=== PATIENT | male | born 1990 | race American Indian/Alaskan Native ===

== ENCOUNTER 2019-12-14 00:45 | Emergency (ER) | payer SELFPAY ==
[2019-12-14] MEDS ORDERED: CLINDAMYCIN 300 MG CAP PO ONE (03:47)
[2019-12-14] MEDS ORDERED: SULFAMETHOXAZOLE/TRIMETHOPRIM 800/160MG DS TAB PO ONE (03:47)
[2019-12-14] MEDS ORDERED: ONDANSETRON 4 MG ODT TAB PO ONE (03:47)
[2019-12-14] MEDS ORDERED: ACETAMINOPHEN 500 MG TAB PO ONE (03:47)
[2019-12-14] MEDS ORDERED: IBUPROFEN 600 MG TAB PO ONE (03:47)
--- NOTE | 2019-12-14 04:45 | Emergency Department Report ---
ED General Adult HPI - General Chief complaint: Skin/Abscess/Foreign Body Stated complaint: BOIL UNDER LT ARMPIT Source: patient Mode of arrival: Ambulatory Limitations: No Limitations - History of Present Illness Initial comments: Patient is a 29-year-old -[place]ym[place] male with no past medical history presents to the ED with complaint of acute onset persistent severe painful swollen erythematous maculopapular rash on left axilla for the last 1 week. Patient states that the pain is worsened in the last 2 days such that he was unable to sleep and decided come to the ED for evaluation. Patient states that he has been taking [id number] pain medications with no relief. Patient denies dizziness, syncope, chest pain, shortness of breath, fever, chills, cough, headache, nausea, vomiting, numbness and tingling or weakness of left arm, traumatic injury or heavy lifting, sore throat, neck pain, nasal and sinus congestion. MD Complaint: left axilla swollen painful rash -: Sudden, week(s) (1) Location: upper extremity (left axilla) Radiation: non-radiation Severity scale (0 -10): 10 Quality: aching, sharp Consistency: constant Improves with: none Worsens with: none Associated Symptoms: denies other symptoms, loss of appetite, rash (Swollen painful erythematous maculopapular rash on left axilla). denies: confusion, chest pain, cough, diaphoresis, headaches, malaise, nausea/vomiting, seizure, shortness of breath, syncope, weakness Treatments Prior to Arrival: none - Related Data Previous Rx's Medication Instructions Recorded Last Taken Type Acetaminophen/Codeine [Tylenol 1 tab PO Q6H PRN #12 tab 12/14/19 Unknown Rx /Codeine # 3 tab] Clindamycin [Clindamycin CAP] 300 mg PO Q8HR #60 capsule 12/14/19 Unknown Rx Ibuprofen [Motrin] 800 mg PO Q8HR PRN #30 tablet 12/14/19 Unknown Rx Sulfamethoxazole/Trimethoprim 1 each PO Q12H #20 tablet 12/14/19 Unknown Rx [Bactrim DS TAB] Allergies Allergy/AdvReac Type Severity Reaction Status Date / Time No Known Allergies Allergy Verified 12/14/19 01:37 ED Review of Systems ROS: Stated complaint: BOIL UNDER LT ARMPIT Other details as noted in HPI Constitutional: denies: chills, fever Eyes: denies: eye pain, eye discharge, vision change ENT: denies: ear pain, throat pain Respiratory: denies: cough, shortness of breath, wheezing Cardiovascular: denies: chest pain, palpitations Endocrine: no symptoms reported Gastrointestinal: denies: abdominal pain, nausea, diarrhea Genitourinary: denies: urgency, dysuria Musculoskeletal: arthralgia (Painful swollen erythematous maculopapular rash on left axilla). denies: back pain, joint swelling Skin: rash (Swollen, painful erythematous maculopapular rash on left axilla). denies: lesions Neurological: denies: headache, weakness, paresthesias Psychiatric: denies: anxiety, depression Hematological/Lymphatic: denies: easy bleeding, easy bruising ED Past Medical Hx - Past Medical History Previous Medical History?: No - Surgical History Past Surgical History?: No - Social History Smoking Status: Current Every Day Smoker Substance Use Type: Alcohol - Medications Home Medications: Home Medications Medication Instructions Recorded Confirmed Last Taken Type Acetaminophen/Codeine [Tylenol 1 tab PO Q6H PRN #12 tab 12/14/19 Unknown Rx /Codeine # 3 tab] Clindamycin [Clindamycin CAP] 300 mg PO Q8HR #60 capsule 12/14/19 Unknown Rx Ibuprofen [Motrin] 800 mg PO Q8HR PRN #30 tablet 12/14/19 Unknown Rx Sulfamethoxazole/Trimethoprim 1 each PO Q12H #20 tablet 12/14/19 Unknown Rx [Bactrim DS TAB] ED Physical Exam - General Limitations: No Limitations General appearance: alert, in no apparent distress - Head Head exam: Present: atraumatic, normocephalic, normal inspection - Eye Eye exam: Present: normal appearance, PERRL, EOMI Pupils: Present: normal accommodation - ENT ENT exam: Present: normal exam, normal orophraynx, mucous membranes moist, TM's normal bilaterally, normal external ear exam - Neck Neck exam: Present: normal inspection, full ROM - Respiratory Respiratory exam: Present: normal lung sounds bilaterally. Absent: respiratory distress, wheezes, rales, chest wall tenderness, decreased breath sounds, prolonged expiratory - Cardiovascular Cardiovascular Exam: Present: regular rate, normal rhythm, normal heart sounds. Absent: systolic murmur, diastolic murmur, rubs, gallop - GI/Abdominal GI/Abdominal exam: Present: soft, normal bowel sounds. Absent: tenderness, gua rding, hyperactive bowel sounds, hypoactive bowel sounds - Extremities Exam Extremities exam: Present: normal inspection, full ROM, tenderness (Palpable left axilla tenderness due to swollen erythematous maculopapular fluctuant rash), normal capillary refill - Back Exam Back exam: Present: normal inspection, full ROM. Absent: tenderness, CVA tenderness (R), CVA tenderness (L), muscle spasm, paraspinal tenderness - Neurological Exam Neurological exam: Present: alert, oriented X3, CN II-XII intact, normal gait, reflexes normal - Psychiatric Psychiatric exam: Present: normal affect, normal mood - Skin Skin exam: Present: warm, dry, intact, normal color, rash (Swollen, erythematous maculopapular severely tender fluctuant rash on left axilla), erythema ED Course Vital Signs 12/14/19 01:37 Temperature 98.4 F Pulse Rate 73 Respiratory 18 Rate Blood Pressure 122/64 O2 Sat by Pulse 96 Oximetry - I & D Left Arm Type of Procedure: Simple Site: LEFT AXILLA Blade Size: 11 I & D Procedure: betadine prep, sterile drapes applied, sterile dressing applied, gauze wick placed Progress: Patient tolerated the procedure well and the wound was then completely debrided and cleaned. An iodoform gauze packing was placed and the wound dressed appropriately. Patient was discharged home on pain medication and antibiotics and advised to return to the ED in 2 days for recheck and packing removal. Patient was also advised to follow-up with his primary care physician in 5 to 7 days for reevaluation. ED Medical Decision Making - Medical Decision Making This is a 29-year-old -[place] male with no past medical history presents to the ED with complaint of acute onset persistent severe painful swollen erythematous maculopapular rash on left axilla for the last 1 week. Patient states that the pain is worsened in the last 2 days such that he was unable to sleep and decided come to the ED for evaluation. Patient states that he has been taking [id number] pain medications with no relief. In the ED, patient is alert and oriented x3 and is not in distress. Patient was treated for pain in the ED and also given initial oral antibiotics. Left axilla swelling abscess was incised and drained per protocol and the patient tolerated the procedure well. Patient was discharged home on pain medications and oral antibiotics after the wound was packed and dressed appropriately. Patient was advised to follow-up with his primary care physician in 7 to 10 days for reevaluation or return to the ED immediately if symptoms get worse. Patient was otherwise advised to return to the ED in 2 days for wound recheck and packing removal. - Differential Diagnosis Abscess; cellulitis; folliculitis Critical care attestation.: If time is entered above; I have spent that time in minutes in the direct care of this critically ill patient, excluding procedure time. ED Disposition Clinical Impression: Cutaneous abscess of left axilla, Cellulitis of left axilla, Acute folliculitis Disposition: TO HOME OR SELFCARE Is pt being admited?: No Does the pt Need Aspirin: No Condition: Stable Instructions: Cellulitis (ED), Folliculitis (ED), Abscess (ED) Additional Instructions: Take medication with food, drink plenty fluids and follow-up with your primary care physician in 7 to 10 days for reevaluation. Return to the ED in 2 days for wound recheck and packing removal. Otherwise return to the ED immediately if symptoms get worse. Prescriptions: Sulfamethoxazole/Trimethoprim [Bactrim DS TAB] 1 each PO Q12H #20 tablet Clindamycin [Clindamycin CAP] 300 mg PO Q8HR #60 capsule Ibuprofen [Motrin] 800 mg PO Q8HR PRN #30 tablet PRN Reason: Pain , Severe (7-10) Acetaminophen/Codeine [Tylenol /Codeine # 3 tab] 1 tab PO Q6H PRN #12 tab PRN Reason: Pain , Severe (7-10) Referrals: [facility] [Provider Group] - 7-10 days [facility] [Outside] - 7-10 days Forms: Work/School Release Form(ED) Time of Disposition: 04:46 Print Language: KAZAKH
[2019-12-14 05:51] VITALS: BP 121/86
== END 2019-12-14 05:48 | disposition home or self-care (01) ==
LOC: ED 00:45
DX: L02.412 Cutaneous abscess of left axilla (principal); L03.112 Cellulitis of left axilla; L73.8 Other specified follicular disorders; F17.200 Nicotine dependence, unspecified, uncomplicated; Z79.899 Other long term (current) drug therapy
CPT/HCPCS: 99282; Q0162